=== PATIENT | male | born 1940 | race Caucasian/White ===

== ENCOUNTER → 2019-04-12 | Outpatient (CLI) | payer MEDICARE, OTHER ==
[2019-04-12 15:27] LABS: Basophils % (A) 0 %; Eosinophils # (A) 0.1 k/uL (0-0.7); Eosinophils % (A) 1 %; HCT 34.3 % (39.0-53.0); HGB 11.4 gm/dL (13.0-17.5); Lymphocytes # (A) 1.2 k/uL (1.0-4.8); Lymphocytes % (A) 21 %; MCH 35.7 pg (25.0-35.0); MCHC 33.2 g/dL (31.0-37.0); MCV 107.7 fL (80.0-100.0); Macrocytosis Marked; Mean Platelet Volume 7.7; Monocytes # (A) 0.3 k/uL (0-1.0); Monocytes % (A) 6 %; Neutrophils # (A) 4.1 k/uL (1.3-7.7); Neutrophils % (A) 70 %; Platelet Count 189 k/uL (150-450); RBC 3.18 m/uL (4.30-5.90); RDW 15.4 % (11.5-15.5); WBC 5.9 k/uL (3.8-10.6)
[2019-04-12 15:51] LABS: ALT 31 U/L (21-72); AST 54 U/L (17-59); African American GFR (CKD) 61 (>60 ml/min/1.73 sqM); Albumin 3.9 g/dL (3.5-5.0); Albumin/Globulin Ratio 1.6; Alkaline Phosphatase 53 U/L (38-126); Anion Gap 4 mmol/L; Blood Urea Nitrogen 31 mg/dL (9-20); Calcium 9.5 mg/dL (8.4-10.2); Carbon Dioxide 33 mmol/L (22-30); Chloride 104 mmol/L (98-107); Cholesterol 188 mg/dL (<200); Globulin 2.5 g/dL; Glucose 93 mg/dL (74-99); Potassium 3.6 mmol/L (3.5-5.1); Sodium 141 mmol/L (137-145); Total Protein 6.4 g/dL (6.3-8.2); Triglycerides 40 mg/dL (<150)
[2019-04-12 15:58] LABS: LDL Cholesterol,Calculated 66 mg/dL (0-99)
[2019-04-12 16:06] LABS: Erythrocyte Sedimentation Rate 18 mm/hr (0-15)
[2019-04-12 16:08] LABS: T4, Free (Free Thyroxine) 1.05 ng/dL (0.78-2.19)
[2019-04-12 16:19] LABS: HDL Cholesterol 114 mg/dL (40-60)
[2019-04-12 16:34] LABS: Anisocytosis (M) Present; Hypochromasia (M) Present; Polychromasia Present
[2019-04-12 20:06] LABS: Hemoglobin A1C 4.9 % (4.0-6.0)
== END | disposition home or self-care (01) ==
LOC: LABWHC1 14:45
PROVIDERS: ATTEND Internal Medicine Critical Care Medicine
DX: I10 Essential (primary) hypertension (principal); E78.5 Hyperlipidemia, unspecified
CPT/HCPCS: 36415; 80053; 80061; 82306; 82533; 83036; 84403; 84439; 84443; 85025; 85652; 86141

== ENCOUNTER → 2019-05-31 | Outpatient (CLI) | payer MEDICARE, OTHER ==
[2019-05-31 17:23] LABS: Basophils % (A) 1 %; Eosinophils # (A) 0.1 k/uL (0-0.7); Eosinophils % (A) 2 %; HCT 35.8 % (39.0-53.0); HGB 11.8 gm/dL (13.0-17.5); Lymphocytes % (A) 22 %; MCH 35.8 pg (25.0-35.0); MCV 108.4 fL (80.0-100.0); Macrocytosis Marked; Mean Platelet Volume 6.7; Monocytes # (A) 0.3 k/uL (0-1.0); Monocytes % (A) 7 %; Neutrophils % (A) 66 %; Platelet Count 168 k/uL (150-450); RDW 15.2 % (11.5-15.5); WBC 4.6 k/uL (3.8-10.6)
[2019-05-31 17:54] LABS: Poikilocytosis (M) Present
[2019-05-31 20:54] LABS: Erythrocyte Sedimentation Rate 7 mm/hr (0-15)
[2019-05-31 22:49] LABS: C Reactive Protein 0.7 mg/dL (0.0-0.8)
== END | disposition home or self-care (01) ==
LOC: LABWHC1 16:36
PROVIDERS: ATTEND Internal Medicine Critical Care Medicine
DX: E78.5 Hyperlipidemia, unspecified (principal); M10.9 Gout, unspecified; E27.40 Unspecified adrenocortical insufficiency; R06.00 Dyspnea, unspecified
CPT/HCPCS: 36415; 82533; 84443; 85025; 85652; 86140